=== PATIENT | female | born 1980 | race Caucasian/White ===

== ENCOUNTER 2021-02-06 07:41 | Day surgery (SDC) | payer MEDICAID ==
[~2021-02-06] VITALS: Ht 162.6 cm; Wt 63.0 kg
[2021-02-06 08:08] VITALS: BP 110/75
[2021-02-06] MEDS ORDERED: SODIUM CHLORIDE 0.9% 1,000 ML IV SCH (09:00)
[2021-02-06] MEDS ORDERED: FLUMAZENIL 0.1 MG/1 ML, 5ML ONE (09:02)
[2021-02-06] MEDS ORDERED: FENTANYL PF 100 MCG/2ML ONE (09:02)
[2021-02-06] MEDS ORDERED: MIDAZOLAM 1 MG/ML, 5ML ONE ×2 (09:02)
[2021-02-06] MEDS ORDERED: NALOXONE 1 MG/ML, 2ML ONE (09:03)
[2021-02-06] MEDS ORDERED: LIDOCAINE 1%, 10ML ONE (09:03)
[2021-02-06] MEDS ORDERED: ONDANSETRON 2MG/ML, 2ML IVPush ONE (11:00)
[2021-02-06] MEDS ORDERED: HYDROcodone/APAP 5/325 TABLET PO ONE (11:00)
[2021-02-06] MEDS ORDERED: ACETAMINOPHEN 325 MG TABLET PO ONE (13:00)
== END 2021-02-06 13:25 | disposition home or self-care (01) ==
LOC: OUT 07:41
PROVIDERS: ATTEND Radiology Diagnostic Radiology
DX: N73.8 Other specified female pelvic inflammatory diseases (principal); F17.290 Nicotine dependence, other tobacco product, uncomplicated; Z79.891 Long term (current) use of opiate analgesic; Z79.899 Other long term (current) drug therapy; Z90.722 Acquired absence of ovaries, bilateral; Z90.710 Acquired absence of both cervix and uterus; Z90.79 Acquired absence of other genital organ(s)
CPT/HCPCS: 49406; 72192; 87070; 87075; 87205; 99156; 99157; C1729; C1769; C1894; J2250; J2405; J3010; J7030; 75989; J2310